=== PATIENT | female | born 1960 | race American Indian/Alaskan Native ===

== ENCOUNTER 2017-08-30 14:07 | Emergency (ER) | payer MEDICAID ==
[2017-08-30 15:23] LABS: Basophils % (Auto) 0.9 % (0.0-1.8); Eosinophils % (Auto) 2.3 % (0.0-4.3); Hemoglobin 13.3 gm/dl (10.1-14.3); Mean Corpuscular HGB Conc 34 % (30-34); Mean Corpuscular Hemoglobin 30 pg (28-32); Mean Corpuscular Volume 89 fl (79-97); Platelet Count 185 K/mm3 (140-440); Red Blood Count 4.41 M/mm3 (3.65-5.03); Red Cell Distribution Width 13.3 % (13.2-15.2); White Blood Count 5.1 K/mm3 (4.5-11.0)
[2017-08-30] MEDS ORDERED: HALDOL IM PRN (15:32)
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
[2017-08-30] MEDS ORDERED: ATIVAN ONE (15:34)
[2017-08-30] MEDS: ATIVAN IM PRN (16:06)
[2017-08-30 16:20] LABS: Anion Gap 14 mmol/L; BUN/Creatinine Ratio 21; Blood Urea Nitrogen 15 mg/dL (7-17); Calcium 9.7 mg/dL (8.4-10.2); Carbon Dioxide 29 mmol/L (22-30); Chloride 104.8 mmol/L (98-107); Glucose 101 mg/dL (65-100); Potassium 4.4 mmol/L (3.6-5.0); Sodium 143 mmol/L (137-145)
[2017-08-30] MEDS ORDERED: GEODON IM ONE (16:28)
[2017-08-30 16:55] LABS: Urine Drugs of Abuse Note Disclamer
[2017-08-30 17:03] LABS: Bacteria,Urine 1+ /HPF (Negative); Bilirubin,Urine NEG (Negative); Blood,Urine NEG (Negative); Ketones,Urine 20 mg/dL (Negative); Leukocyte Esterase,Urine SM (Negative); Mucus,Urine FEW /HPF; Nitrite,Urine POS (Negative); Protein,Urine <15 mg/dL mg/dL (Negative); Urobilinogen,Urine < 2.0 mg/dL (<2.0)
[2017-08-30] MEDS ORDERED: MULTIPLE VITAMINS PO SCH (18:45)
[2017-08-30] MEDS ORDERED: LOVASTATIN 20 MG PO SCH (18:45)
[2017-08-30] MEDS ORDERED: NON-FORMULARY (Omeprazole Magnesium [Prilosec Otc] 20 MG) PO SCH (18:45)
[2017-08-30 19:20] LABS: Carbamazepine (Tegretol) 4.5 ug/mL (4-12); Valproate 20.9 ug/mL (50-100)
[2017-08-30] MEDS: VALIUM PO SCH (21:21)
[2017-08-30] MEDS ORDERED: PRAVACHOL PO SCH (22:00)
[2017-08-30] MEDS ORDERED: NON-FORMULARY (Levetiracetam [Keppra Tab] 1,000 MG) PO SCH (22:00)
[2017-08-30] MEDS ORDERED: KEPPRA PO SCH (22:00)
[2017-08-30] MEDS ORDERED: NON-FORMULARY (Ziprasidone Hcl [Geodon] 80 MG) PO SCH (22:00)
[2017-08-31] MEDS: GEODON PO SCH ×4 (01:52→10:08)
[2017-08-31] MEDS: INDERAL PO SCH ×2 (01:52→10:08)
[2017-08-31] MEDS: MACROBID PO SCH ×2 (01:52→10:08)
[2017-08-31] MEDS: COGENTIN PO SCH ×2 (01:52→10:08)
[2017-08-31 07:38] VITALS: BP 118/78
[2017-08-31] MEDS: VALIUM PO SCH ×2 (09:04→13:41)
[2017-08-31] MEDS ORDERED: KEPPRA PO SCH (10:00)
[2017-08-31] MEDS ORDERED: THERAGRAN-M Tab PO SCH (10:00)
[2017-08-31] MEDS ORDERED: PROTONIX PO SCH (10:00)
[2017-08-31] MEDS: ATIVAN IM PRN (10:11)
--- NOTE | 2017-08-31 13:06 | Event Note ---
Date: 08/31/17 The patient has been pleasant, calm and cooperative on night. The patient is now smiling and laughing with staff members and appears to be in good spirits. She is not made any aggressive actions, and she is not homicidal or suicidal. Given her developmental delay, patient does not appear to be acutely psychotic, and she was also seen in conjunction with the crisis team last night, Gabbykrista Salgado, who also indicated the patient did not meet objective criteria for 1013 or inpatient psychiatric hospitalization. Her airport driver feels comfortable to take the patient home, medically she appears to be suitable to go home with no decompensation. Patient will be discharged at this time, I will discontinue her 1013. Vital Signs 08/30/17 08/30/17 08/31/17 14:29 19:54 07:36 Temperature 98.1 F 98.3 F 98 F Pulse Rate 67 81 86 Respiratory 18 17 20 Rate Blood Pressure 130/81 121/84 118/78 [Left] O2 Sat by Pulse 100 100 Oximetry 08/31/17 07:38 Temperature Pulse Rate Respiratory 18 Rate Blood Pressure [Left] O2 Sat by Pulse Oximetry Lab Results 08/30/17 08/30/17 08/30/17 Range/Units 15:07 15:07 15:07 WBC 5.1 (4.5-11.0) K/mm3 RBC 4.41 (3.65-5.03) M/mm3 Hgb 13.3 (10.1-14.3) gm/dl Hct 39.0 (30.3-42.9) % MCV 89 (79-97) fl MCH 30 (28-32) pg MCHC 34 (30-34) % RDW 13.3 (13.2-15.2) % Plt Count 185 (140-440) K/mm3 Lymph % (Auto) 24.0 (13.4-35.0) % [place] % (Auto) 7.4 H (0.0-7.3) % Eos % (Auto) 2.3 (0.0-4.3) % Baso % (Auto) 0.9 (0.0-1.8) % Lymph # 1.2 (1.2-5.4) K/mm3 [place] # 0.4 (0.0-0.8) K/mm3 Eos # 0.1 (0.0-0.4) K/mm3 Baso # 0.0 (0.0-0.1) K/mm3 Seg Neutrophils % 65.4 (40.0-70.0) % Seg Neutrophils # 3.4 (1.8-7.7) K/mm3 Sodium 143 (137-145) mmol/L Potassium 4.4 (3.6-5.0) mmol/L Chloride 104.8 (98-107) mmol/L Carbon Dioxide 29 (22-30) mmol/L Anion Gap 14 mmol/L BUN 15 (7-17) mg/dL Creatinine 0.7 (0.7-1.2) mg/dL Estimated GFR > 60 ml/min BUN/Creatinine Ratio 21 % Glucose 101 H (65-100) mg/dL Calcium 9.7 (8.4-10.2) mg/dL Total Creatine Kinase (30-135) units/L Urine Color (Yellow) Urine Turbidity (Clear) Urine pH (5.0-7.0) Ur Specific [place] (1.003-1.030) Urine Protein (Negative) mg/dL Urine Glucose (UA) (Negative) mg/dL Urine Ketones (Negative) mg/dL Urine Blood (Negative) Urine Nitrite (Negative) Urine Bilirubin (Negative) Urine Urobilinogen (<2.0) mg/dL Ur Leukocyte Esterase (Negative) Urine WBC (Auto) (0.0-6.0) /HPF Urine RBC (Auto) (0.0-6.0) /HPF U Epithel Cells (Auto) (0-13.0) /HPF Urine Bacteria (Auto) (Negative) /HPF Urine Mucus /HPF Salicylates (2.8-20.0) mg/dL Urine Opiates Screen Urine Methadone Screen Acetaminophen (10.0-30.0) ug/mL Ur Barbiturates Screen Valproic Acid (50-100) ug/mL Carbamazepine (4-12) ug/mL Ur Phencyclidine Scrn Ur Amphetamines Screen U Benzodiazepines Scrn Urine Cocaine Screen U Marijuana (THC) Screen Drugs of Abuse Note Plasma/Serum Alcohol < 0.01 (0-0.07) gm% 08/30/17 08/30/17 08/30/17 Range/Units 15:07 15:07 15:07 WBC (4.5-11.0) K/mm3 RBC (3.65-5.03) M/mm3 Hgb (10.1-14.3) gm/dl Hct (30.3-42.9) % MCV (79-97) fl MCH (28-32) pg MCHC (30-34) % RDW (13.2-15.2) % Plt Count (140-440) K/mm3 Lymph % (Auto) (13.4-35.0) % [place] % (Auto) (0.0-7.3) % Eos % (Auto) (0.0-4.3) % Baso % (Auto) (0.0-1.8) % Lymph # (1.2-5.4) K/mm3 [place] # (0.0-0.8) K/mm3 Eos # (0.0-0.4) K/mm3 Baso # (0.0-0.1) K/mm3 Seg Neutrophils % (40.0-70.0) % Seg Neutrophils # (1.8-7.7) K/mm3 Sodium (137-145) mmol/L Potassium (3.6-5.0) mmol/L Chloride (98-107) mmol/L Carbon Dioxide (22-30) mmol/L Anion Gap mmol/L BUN (7-17) mg/dL Creatinine (0.7-1.2) mg/dL Estimated GFR ml/min BUN/Creatinine Ratio % Glucose (65-100) mg/dL Calcium (8.4-10.2) mg/dL Total Creatine Kinase 124 (30-135) units/L Urine Color (Yellow) Urine Turbidity (Clear) Urine pH (5.0-7.0) Ur Specific [place] (1.003-1.030) Urine Protein (Negative) mg/dL Urine Glucose (UA) (Negative) mg/dL Urine Ketones (Negative) mg/dL Urine Blood (Negative) Urine Nitrite (Negative) Urine Bilirubin (Negative) Urine Urobilinogen (<2.0) mg/dL Ur Leukocyte Esterase (Negative) Urine WBC (Auto) (0.0-6.0) /HPF Urine RBC (Auto) (0.0-6.0) /HPF U Epithel Cells (Auto) (0-13.0) /HPF Urine Bacteria (Auto) (Negative) /HPF Urine Mucus /HPF Salicylates < 0.3 L (2.8-20.0) mg/dL Urine Opiates Screen Urine Methadone Screen Acetaminophen < 15.0 (10.0-30.0) ug/mL Ur Barbiturates Screen Valproic Acid (50-100) ug/mL Carbamazepine (4-12) ug/mL Ur Phencyclidine Scrn Ur Amphetamines Screen U Benzodiazepines Scrn Urine Cocaine Screen U Marijuana (THC) Screen Drugs of Abuse Note Plasma/Serum Alcohol (0-0.07) gm% 08/30/17 08/30/17 08/30/17 Range/Units 15:07 16:50 16:50 WBC (4.5-11.0) K/mm3 RBC (3.65-5.03) M/mm3 Hgb (10.1-14.3) gm/dl Hct (30.3-42.9) % MCV (79-97) fl MCH (28-32) pg MCHC (30-34) % RDW (13.2-15.2) % Plt Count (140-440) K/mm3 Lymph % (Auto) (13.4-35.0) % [place] % (Auto) (0.0-7.3) % Eos % (Auto) (0.0-4.3) % Baso % (Auto) (0.0-1.8) % Lymph # (1.2-5.4) K/mm3 [place] # (0.0-0.8) K/mm3 Eos # (0.0-0.4) K/mm3 Baso # (0.0-0.1) K/mm3 Seg Neutrophils % (40.0-70.0) % Seg Neutrophils # (1.8-7.7) K/mm3 Sodium (137-145) mmol/L Potassium (3.6-5.0) mmol/L Chloride (98-107) mmol/L Carbon Dioxide (22-30) mmol/L Anion Gap mmol/L BUN (7-17) mg/dL Creatinine (0.7-1.2) mg/dL Estimated GFR ml/min BUN/Creatinine Ratio % Glucose (65-100) mg/dL Calcium (8.4-10.2) mg/dL Total Creatine Kinase (30-135) units/L Urine Color Yellow (Yellow) Urine Turbidity Slightly-cloudy (Clear) Urine pH 6.0 (5.0-7.0) Ur Specific [place] 1.023 (1.003-1.030) Urine Protein <15 mg/dl (Negative) mg/dL Urine Glucose (UA) Neg (Negative) mg/dL Urine Ketones 20 (Negative) mg/dL Urine Blood Neg (Negative) Urine Nitrite Pos (Negative) Urine Bilirubin Neg (Negative) Urine Urobilinogen < 2.0 (<2.0) mg/dL Ur Leukocyte Esterase Sm (Negative) Urine WBC (Auto) 7.0 H (0.0-6.0) /HPF Urine RBC (Auto) 1.0 (0.0-6.0) /HPF U Epithel Cells (Auto) < 1.0 (0-13.0) /HPF Urine Bacteria (Auto) 1+ (Negative) /HPF Urine Mucus Few /HPF Salicylates (2.8-20.0) mg/dL Urine Opiates Screen Presumptive negative Urine Methadone Screen Presumptive negative Acetaminophen (10.0-30.0) ug/mL Ur Barbiturates Screen Presumptive negative Valproic Acid 20.9 L (50-100) ug/mL Carbamazepine 4.5 (4-12) ug/mL Ur Phencyclidine Scrn Presumptive negative Ur Amphetamines Screen Presumptive negative U Benzodiazepines Scrn Presumptive positive Urine Cocaine Screen Presumptive negative U Marijuana (THC) Screen Presumptive negative Drugs of Abuse Note Disclamer Plasma/Serum Alcohol (0-0.07) gm%
== END 2017-08-31 14:38 | disposition home or self-care (01) ==
LOC: EEVIPCON 14:07 → ED 14:07
DX: F91.8 Other conduct disorders (principal)
CPT/HCPCS: 36415; 80048; 80156; 80164; 80307; 81001; 82550; 85025; 96372; 99284; A9270; G0480; J1630; J2060; J3486; 80320

== ENCOUNTER 2017-09-07 10:20 | Emergency (ER) | payer MEDICAID ==
[2017-09-07] MEDS ORDERED: GEODON IM ONE ×2 (10:42→11:30)
--- NOTE | 2017-09-07 10:51 | Emergency Department Report ---
ED Psych HPI - General Chief Complaint: Altered Mental Status Stated Complaint: 1013/SCHIZO/DEMENTED/BIPOLAR Time Seen by Provider: 09/07/17 10:44 Source: police, RN notes reviewed, old records reviewed Mode of arrival: Ambulatory - History of Present Illness Initial Comments: Patient is 57 years old female history of schizophrenia and bipolar disorder, presented to the ER via PD after her personal home called, stating that the patient was very combative and destroying items. Patient also saying that she want to kill herself and kill everyone. Patient is very combative when she came to the ER tear stuff apart and stating that she does not want to talk to anyone. MD Complaint: suicidal ideation, altered mental status -: Gradual Associated Psychiatric Symptoms: racing thoughts, auditory hallucinations, visual hallucinations History of same: Yes Quality: constant Treatments Prior to Arrival: placed on mental he - Related Data Home Medications Medication Instructions Recorded Confirmed Last Taken Benztropine [Cogentin] 1 mg PO BID 08/30/17 08/30/17 Unknown Diazepam Tab [Valium] 2 mg PO TID 08/30/17 08/30/[address] [DepaKOTE DR] 500 mg PO BID 08/30/17 08/30/17 Unknown Lovastatin Tab [Mevacor Tab] 20 mg PO DAILY 08/30/17 08/30/17 Unknown Multiple Vitamins 20 mg PO DAILY 08/30/17 08/30/17 Unknown Omeprazole Magnesium [PriLOSEC Otc] 20 mg PO QDAY 08/30/17 08/30/17 Unknown Propranolol [Inderal] 10 mg PO BID 08/30/17 08/30/17 Unknown Ziprasidone HCl [Geodon] 80 mg PO BID MDD 100mg in am 08/30/17 08/30/17 Unknown Ziprasidone [Geodon] 20 mg PO BID MDD 100mg at hs 08/30/17 08/30/17 Unknown carBAMazepine [TEGretol] 200 mg PO Q12HR 08/30/17 08/30/17 Unknown levETIRAcetam [Keppra TAB] 1,000 mg PO QHS 08/30/17 08/30/17 Unknown levETIRAcetam [Keppra TAB] 1,500 mg PO QAM 08/30/17 08/30/17 Unknown Previous Rx's Medication Instructions Recorded Last Taken Type Nitrofurantoin Edgar/M-Cryst 100 mg PO Q12HR #13 capsule 08/31/17 Unknown Rx [Macrobid CAP] Allergies Allergy/AdvReac Type Severity Reaction Status Date / Time Unable to Assess Allergy Unverified 08/30/17 14:14 ED Review of Systems ROS: Stated complaint: 1013/SCHIZO/DEMENTED/BIPOLAR Other details as noted in HPI Comment: All other systems reviewed and negative Constitutional: denies: chills, fever ENT: denies: throat pain Respiratory: denies: cough, orthopnea, shortness of breath, SOB with exertion Cardiovascular: denies: chest pain, palpitations Gastrointestinal: denies: abdominal pain, nausea, vomiting, diarrhea, constipation, hematemesis Psychiatric: auditory hallucinations, visual hallucinations, suicidal thoughts ED Past Medical Hx - Past Medical History Additional medical history: unobtainable - Surgical History Additional Surgical History: unobtainable - Social History Smoking Status: Never Smoker Substance Use Type: None - Medications Home Medications: Home Medications Medication Instructions Recorded Confirmed Last Taken Type Benztropine [Cogentin] 1 mg PO BID 08/30/17 08/30/17 Unknown History Diazepam Tab [Valium] 2 mg PO TID 08/30/17 08/30/[address] [DepaKOTE DR] 500 mg PO BID 08/30/17 08/30/17 Unknown History Lovastatin Tab [Mevacor Tab] 20 mg PO DAILY 08/30/17 08/30/17 Unknown History Multiple Vitamins 20 mg PO DAILY 08/30/17 08/30/17 Unknown History Omeprazole Magnesium [PriLOSEC Otc] 20 mg PO QDAY 08/30/17 08/30/17 Unknown History Propranolol [Inderal] 10 mg PO BID 08/30/17 08/30/17 Unknown History Ziprasidone HCl [Geodon] 80 mg PO BID MDD 100mg in am 08/30/17 08/30/17 Unknown History Ziprasidone [Geodon] 20 mg PO BID MDD 100mg at hs 08/30/17 08/30/17 Unknown History carBAMazepine [TEGretol] 200 mg PO Q12HR 08/30/17 08/30/17 Unknown History levETIRAcetam [Keppra TAB] 1,000 mg PO QHS 08/30/17 08/30/17 Unknown History levETIRAcetam [Keppra TAB] 1,500 mg PO QAM 08/30/17 08/30/17 Unknown History Nitrofurantoin Edgar/M-Cryst 100 mg PO Q12HR #13 capsule 08/31/17 Unknown Rx [Macrobid CAP] ED Physical Exam - General Limitations: Altered Mental Status General appearance: alert, anxious - Head Head exam: Present: atraumatic, normocephalic, normal inspection - Eye Eye exam: Present: normal appearance - ENT ENT exam: Present: normal exam - Neck Neck exam: Present: normal inspection, full ROM. Absent: tenderness, meningismus, lymphadenopathy - Respiratory Respiratory exam: Present: normal lung sounds bilaterally. Absent: respiratory distress, wheezes, rales, rhonchi, chest wall tenderness, decreased breath sounds, prolonged expiratory - Cardiovascular Cardiovascular Exam: Present: regular rate, normal rhythm, normal heart sounds - GI/Abdominal GI/Abdominal exam: Present: soft, normal bowel sounds. Absent: distended, tenderness, guarding, rebound, rigid, organomegaly, mass, bruit, pulsatile mass , hernia - Extremities Exam Extremities exam: Present: normal inspection, full ROM, normal capillary refill - Back Exam Back exam: Present: normal inspection, full ROM. Absent: tenderness, CVA tenderness (R), CVA tenderness (L) - Neurological Exam Neurological exam: Present: alert, oriented X3, CN II-XII intact, normal gait, reflexes normal. Absent: motor sensory deficit - Psychiatric Psychiatric exam: Present: agitated, anxious, manic, suicidal ideation - Skin Skin exam: Present: warm, intact, normal color ED Course Vital Signs 09/07/17 10:32 Temperature 98.6 F Pulse Rate 93 H Respiratory 18 Rate Blood Pressure 122/71 O2 Sat by Pulse 99 Oximetry ED Medical Decision Making - Lab Data Result diagrams: 09/07/17 10:50 09/07/17 10:50 Critical care attestation.: If time is entered above; I have spent that time in minutes in the direct care of this critically ill patient, excluding procedure time. ED Disposition Clinical Impression: Acute psychosis, Suicidal ideation Disposition: DC/TX-65 PSY HOSP/PSY UNIT Is pt being admited?: No Condition: Stable
[2017-09-07 11:13] LABS: Basophils # (Auto) 0.1 K/mm3 (0.0-0.1); Basophils % (Auto) 1.3 % (0.0-1.8); Eosinophils # (Auto) 0.1 K/mm3 (0.0-0.4); Hematocrit 39.9 % (30.3-42.9); Hemoglobin 13.4 gm/dl (10.1-14.3); Lymphocytes # (Auto) 1.1 K/mm3 (1.2-5.4); Lymphocytes % (Auto) 21.9 % (13.4-35.0); Mean Corpuscular HGB Conc 34 % (30-34); Mean Corpuscular Hemoglobin 30 pg (28-32); Mean Corpuscular Volume 88 fl (79-97); Monocytes # (Auto) 0.3 K/mm3 (0.0-0.8); Monocytes % (Auto) 6.5 % (0.0-7.3); Platelet Count 216 K/mm3 (140-440); Red Blood Count 4.55 M/mm3 (3.65-5.03); Red Cell Distribution Width 13.1 % (13.2-15.2)
[2017-09-07 11:27] LABS: Alanine Aminotransferase 18 units/L (7-56); Albumin 4.2 g/dL (3.9-5); BUN/Creatinine Ratio 23; Blood Urea Nitrogen 18 mg/dL (7-17); Calcium 9.4 mg/dL (8.4-10.2); Hemolysis Index 13
[2017-09-07 11:55] LABS: Bilirubin,Urine NEG (Negative); Blood,Urine NEG (Negative); Color,Urine Yellow (Yellow); Mucus,Urine FEW /HPF; Nitrite,Urine NEG (Negative)
[2017-09-07 12:18] LABS: Amphetamine Screen,Urine PRESUMPTIVE NEGATIVE; Cannabinoid Screen,Urine PRESUMPTIVE NEGATIVE; Cocaine Screen,Urine PRESUMPTIVE NEGATIVE; Methadone Screen,Urine PRESUMPTIVE NEGATIVE; Opiate Screen,Urine PRESUMPTIVE NEGATIVE
[2017-09-07 12:31] LABS: Benzodiazepines Screen,Urine PRESUMPTIVE POSITIVE
--- NOTE | 2017-09-09 11:31 | Consultation ---
History of Present Illness - Reason for Consult Consult date: 09/09/17 Reason for consult: Mental Health Evaluation Requesting physician: SUMMER SNOWDEN - Chief Complaint Chief complaint: "Patient will not talk during the interview" - History of Present Psychiatric Illness 57 y.o. AA female presenting to [facility] per her personal retirement for combative/ aggressive behavior and SI's. Today patient is nonverbal during the assessment with a gazed stare. She refused to answer any questions asked of her. No gestures of SI/HI's. Medications and Allergies Allergies Allergy/AdvReac Type Severity Reaction Status Date / Time Unable to Assess Allergy Unverified 08/30/17 14:14 Home Medications Medication Instructions Recorded Confirmed Last Taken Type Benztropine [Cogentin] 1 mg PO BID 08/30/17 09/08/17 Unknown History Diazepam Tab [Valium] 2 mg PO TID 08/30/17 09/08/[address] [DepaKOTE DR] 500 mg PO BID 08/30/17 09/08/17 Unknown History Lovastatin Tab [Mevacor Tab] 20 mg PO DAILY 08/30/17 09/08/17 Unknown History Multiple Vitamins 20 mg PO DAILY 08/30/17 09/08/17 Unknown History Omeprazole Magnesium [PriLOSEC Otc] 20 mg PO QDAY 08/30/17 09/08/17 Unknown History Propranolol [Inderal] 10 mg PO BID 08/30/17 09/08/17 Unknown History Ziprasidone HCl [Geodon] 80 mg PO BID MDD 100mg in am 08/30/17 09/08/17 Unknown History Ziprasidone [Geodon] 20 mg PO BID MDD 100mg at hs 08/30/17 09/08/17 Unknown History carBAMazepine [TEGretol] 200 mg PO Q12HR 08/30/17 09/08/17 Unknown History levETIRAcetam [Keppra TAB] 1,000 mg PO QHS 08/30/17 09/08/17 Unknown History levETIRAcetam [Keppra TAB] 1,500 mg PO QAM 08/30/17 09/08/17 Unknown History Nitrofurantoin [place]/M-Cryst 100 mg PO Q12HR #13 capsule 08/31/17 09/08/17 Unknown Rx [Macrobid CAP] Past psychiatric history - Past Medical History Past Medical History: other (Unable to obtain) Past Surgical History: Other (Unable to obtain) - past Psychiatric treatment and history psychiatric treatment history: Unable to obtain a psy hx and a fam psy hx. - Social History Social history: other (Per the record - Patient resides at a personal retirement) Mental Status Exam - Vital signs Last Vital Signs Temp 97.8 F 09/09/17 06:05 Pulse 67 09/09/17 06:05 Resp 18 09/09/17 08:27 BP 136/77 09/09/17 06:05 Pulse Ox 96 09/09/17 06:05 - Exam Narrative exam: Unable to complete MSE because of patient's condition. Results Result Diagrams: 09/07/17 10:50 09/07/17 10:50 All other labs normal. Assessment and Plan Assessment and plan: Impression: Per the record - The patient has a hx of Bipolar DO/Schizophrenia. Today patient is nonverbal during the assessment. She refused to talk during the assessment. Recommendation/Plan: Continue 1013 and gather collateral to determine proper treatment and dispo. VA and CK ordered.
--- NOTE | 2017-09-10 10:07 | Progress Note ---
Subjective - Reason for Consult Consult date: 09/10/17 Reason for consult: Psychiatry Follow-up - Chief Complaint Chief complaint: "Hello" 57 y.o. AA female presenting to [facility] per her personal usp for combative/ aggressive behavior and SI's. Today patient is calm during the assessment. She stated she felt "okay" when she was asked about her mood. She would not answer other questions when asked. Per the staff, no behavioral disturbances since her admission. No gestures of SI/HI's. Mental Status Exam - Vital signs Last Vital Signs Temp 97.6 F 09/09/17 15:44 Pulse 75 09/09/17 15:44 Resp 19 09/10/17 04:44 BP 142/90 09/09/17 15:44 Pulse Ox 99 09/10/17 04:44 - Exam Narrative exam: MSE: Appearance: calm Behavior: good eye contact Speech: regular rate and tone Mood: "okay" Affect: congruent to mood Thought Process: unable to assess Thought Content: no gestures of SI/HI's and AVH's Motor Activity: ambulatory Cognition: unable to assess Insight: unable to assess Judgment: unable to assess Assessment and Plan Impression: Per the record - The patient has a hx of Bipolar DO/Schizophrenia. Today patient is calm during the assessment. Recommendation/Plan: Rescind 1013. Patient can return to her skilled nursing per her rabbet operator Ingrid Munguia. Patient will follow up with her psychiatrist ( outpatient) once discharged per her rabbet operator. Patient does not need any prescriptions.
[2017-09-10] MEDS ORDERED: ATIVAN ONE (22:40)
[2017-09-10] MEDS ORDERED: GEODON IM ONE (22:41)
[2017-09-10] MEDS ORDERED: HALDOL ONE (22:57)
[2017-09-10] MEDS ORDERED: ATIVAN IM ONE (23:00)
--- NOTE | 2017-09-10 23:01 | Event Note ---
Date: 09/10/17 Patient had 1013 rescinded and about 20 minutes ago started acting hysterical and had to be placed in a padded room. She was banging her head against the glass so I ordered a CT and we gave her Haldol 5 mg, Geodon 20mg and ativan. We will reinstate the 1013.
[2017-09-10] MEDS ORDERED: HALDOL IM ONE (23:59)
[2017-09-11] MEDS ORDERED: GEODON IM ONE (00:01)
[2017-09-11] MEDS ORDERED: HALDOL IM ONE (01:06)
[2017-09-11] MEDS ORDERED: BENADRYL IM ONE (01:06)
--- NOTE | 2017-09-11 02:56 | Cat Scan Report ---
FINAL REPORT EXAM: CT HEAD/BRAIN WO CON HISTORY: Trauma to head self inflicted. COMPARISON: None available. TECHNIQUE: Axial images obtained skull base through vertex. FINDINGS: No acute intracranial hemorrhage, midline shift or pathologic extra axial fluid collection. Ventricles and cisterns are normal in size and configuration for the patient's age. Ruth-white differentiation preserved. Calvarium grossly intact. Soft tissue swelling along the left parietal calvarium. Prior cataract surgery. Mild mucosal thickening of the ethmoid air cells. Mastoid air cells are clear. IMPRESSION: No grossly acute intracranial abnormality. Soft tissue swelling along the left parietal calvarium. No calvarial fracture.
--- NOTE | 2017-09-12 09:57 | Progress Note ---
Subjective - Reason for Consult Consult date: 09/12/17 Reason for consult: Psychiatry Follow-up - Chief Complaint Chief complaint: "Hi" 57 y.o. AA female presenting to [facility] per her personal alf for combative/ aggressive behavior and SI's. Today patient is calm during the assessment. Per the record the patient's 1013 was reinstated (09/11/2017) for aggressive and destructive behavior. She would not answer any questions asked of her during the interview. No gestures of SI/HI's. Per collateral from Mahn[employer] (outbound sales advisor) the patient takes 1500 mg QAM/2000 mg QHS for seizure, Tegretol 200 mg PO BID for mood, and Depakote DR 500 mg PO BID for mood. Mental Status Exam - Vital signs Last Vital Signs Temp 97.9 F 09/11/17 22:00 Pulse 75 09/11/17 22:00 Resp 20 09/11/17 22:00 BP 137/92 09/11/17 22:00 Pulse Ox 99 09/11/17 22:00 - Exam Narrative exam: MSE: Appearance: calm Behavior: good eye contact Speech: regular rate and loud tone Mood: "okay" Affect: congruent to mood Thought Process: unable to assess Thought Content: no gestures of SI/HI's and AVH's Motor Activity: ambulatory Cognition: unable to assess Insight: unable to assess Judgment: unable to assess Assessment and Plan Impression: Per the record - The patient has a hx of Bipolar DO/Schizophrenia. Today patient is calm during the assessment. Recommendation/Plan: Continue 1013 with placement to inpatient psy services. Start Depakote DR 500 mg PO BID for mood, Tegretol 200 mg PO BID for mood. Informed the ER physician of patient's hx of seizure and Keppra dosages.
[2017-09-12] MEDS: KEPPRA PO SCH (22:25)
--- NOTE | 2017-09-13 08:34 | Progress Note ---
Subjective - Reason for Consult Consult date: 09/13/17 Reason for consult: Psychiatry Follow-up - Chief Complaint Chief complaint: "Hello" 57 y.o. AA female presenting to [facility] per her personal correction for combative/ aggressive behavior and SI's. Today patient is calm and cooperative during the assessment. The patient is more oriented today than previous interviews. She was able to tell me her location and name. She denies SI/HI's and AVH's. Per the staff, no behavioral disturbance overnight. No indications of side effects of her medications. Mental Status Exam - Vital signs Last Vital Signs Temp 98.0 F 09/12/17 22:00 Pulse 76 09/12/17 22:00 Resp 18 09/12/17 22:00 BP 145/85 09/12/17 22:00 Pulse Ox 98 09/12/17 22:00 - Exam Narrative exam: MSE: Appearance: calm, cooperative Behavior: good eye contact Speech: regular rate and loud tone Mood: "okay" Affect: congruent to mood Thought Process: circumstantial Thought Content: denies SI/HI's and AVH's Motor Activity: ambulatory Cognition: A/O x3 Insight: limited Judgment: limited Assessment and Plan Impression: Per the record - The patient has a hx of Bipolar DO/Schizophrenia. Today patient is calm and cooperative during the assessment. Recommendation/Plan: Continue 1013 with placement to inpatient psy services. Continue Depakote DR 500 mg PO BID for mood and Tegretol 200 mg PO BID for mood.
[2017-09-13] MEDS: KEPPRA PO SCH (10:45)
[2017-09-13 20:12] VITALS: BP 133/72
--- NOTE | 2017-09-13 21:27 | Emergency Department Report ---
HPI - General Chief Complaint: Altered Mental Status Time Seen by Provider: 09/07/17 10:44 - HPI HPI: Progress note: Patient is a 57-year-old female who is in a retirement. Patient is seen by psych evaluation staff and determined that she is not meeting criteria for placement in a psych facility. Patient has purely behavioral issues. There is a support plan in place for this patient already at her retirement ED Past Medical Hx - Past Medical History Previous Medical History?: Yes Additional medical history: unobtainable - Surgical History Additional Surgical History: unobtainable - Social History Smoking Status: Never Smoker Substance Use Type: None - Medications Home Medications: Home Medications Medication Instructions Recorded Confirmed Last Taken Type Benztropine [Cogentin] 1 mg PO BID 08/30/17 09/08/17 Unknown History Diazepam Tab [Valium] 2 mg PO TID 08/30/17 09/08/[address] [DepaKOTE DR] 500 mg PO BID 08/30/17 09/08/17 Unknown History Lovastatin Tab [Mevacor Tab] 20 mg PO DAILY 08/30/17 09/08/17 Unknown History Multiple Vitamins 20 mg PO DAILY 08/30/17 09/08/17 Unknown History Omeprazole Magnesium [PriLOSEC Otc] 20 mg PO QDAY 08/30/17 09/08/17 Unknown History Propranolol [Inderal] 10 mg PO BID 08/30/17 09/08/17 Unknown History Ziprasidone HCl [Geodon] 80 mg PO BID MDD 100mg in am 08/30/17 09/08/17 Unknown History Ziprasidone [Geodon] 20 mg PO BID MDD 100mg at hs 08/30/17 09/08/17 Unknown History carBAMazepine [TEGretol] 200 mg PO Q12HR 08/30/17 09/08/17 Unknown History levETIRAcetam [Keppra TAB] 1,000 mg PO QHS 08/30/17 09/08/17 Unknown History levETIRAcetam [Keppra TAB] 1,500 mg PO QAM 08/30/17 09/08/17 Unknown History Nitrofurantoin [place]/M-Cryst 100 mg PO Q12HR #13 capsule 08/31/17 09/08/17 Unknown Rx [Macrobid CAP] ED Review of Systems ROS: Stated complaint: 1013/SCHIZO/DEMENTED/BIPOLAR Other details as noted in HPI Constitutional: denies: chills, fever ENT: denies: throat pain Respiratory: denies: cough, orthopnea, shortness of breath, SOB with exertion Cardiovascular: denies: chest pain, palpitations Gastrointestinal: denies: abdominal pain, nausea, vomiting, diarrhea, constipation, hematemesis Psychiatric: auditory hallucinations, visual hallucinations, suicidal thoughts Physical Exam - Physical Exam Vital Signs: Vital Signs 09/07/17 09/07/17 09/08/17 10:32 20:27 09:15 Temperature 98.6 F Pulse Rate 93 H 64 Respiratory 18 16 17 Rate Blood Pressure 122/71 Blood Pressure 110/76 [Left] O2 Sat by Pulse 99 97 Oximetry 09/08/17 09/09/17 09/09/17 18:42 06:05 08:27 Temperature 97.8 F Pulse Rate 86 67 Respiratory 18 16 18 Rate Blood Pressure Blood Pressure 136/77 [Left] O2 Sat by Pulse 96 Oximetry 09/09/17 09/10/17 09/10/17 15:44 04:44 23:01 Temperature 97.6 F Pulse Rate 75 88 Respiratory 19 19 18 Rate Blood Pressure Blood Pressure 142/90 143/92 [Left] O2 Sat by Pulse 99 99 100 Oximetry 09/11/17 09/11/17 09/12/17 12:33 22:00 14:00 Temperature 98.7 F 97.9 F Pulse Rate 77 75 Respiratory 20 20 20 Rate Blood Pressure Blood Pressure 123/88 137/92 [Left] O2 Sat by Pulse 100 99 99 Oximetry 09/12/17 09/13/17 09/13/17 22:00 10:41 12:40 Temperature 98.0 F 98.3 F Pulse Rate 76 87 Respiratory 18 20 18 Rate Blood Pressure Blood Pressure 145/85 110/80 [Left] O2 Sat by Pulse 98 98 Oximetry 09/13/17 20:11 Temperature 98.7 F Pulse Rate 74 Respiratory 17 Rate Blood Pressure Blood Pressure 133/72 [Left] O2 Sat by Pulse 97 Oximetry General: Patient stable in no acute distress at this time please see the original H&P for full physical exam ED Course Vital Signs 09/07/17 09/07/17 09/08/17 10:32 20:27 09:15 Temperature 98.6 F Pulse Rate 93 H 64 Respiratory 18 16 17 Rate Blood Pressure 122/71 Blood Pressure 110/76 [Left] O2 Sat by Pulse 99 97 Oximetry 09/08/17 09/09/17 09/09/17 18:42 06:05 08:27 Temperature 97.8 F Pulse Rate 86 67 Respiratory 18 16 18 Rate Blood Pressure Blood Pressure 136/77 [Left] O2 Sat by Pulse 96 Oximetry 09/09/17 09/10/17 09/10/17 15:44 04:44 23:01 Temperature 97.6 F Pulse Rate 75 88 Respiratory 19 19 18 Rate Blood Pressure Blood Pressure 142/90 143/92 [Left] O2 Sat by Pulse 99 99 100 Oximetry 09/11/17 09/11/17 09/12/17 12:33 22:00 14:00 Temperature 98.7 F 97.9 F Pulse Rate 77 75 Respiratory 20 20 20 Rate Blood Pressure Blood Pressure 123/88 137/92 [Left] O2 Sat by Pulse 100 99 99 Oximetry 09/12/17 09/13/17 09/13/17 22:00 10:41 12:40 Temperature 98.0 F 98.3 F Pulse Rate 76 87 Respiratory 18 20 18 Rate Blood Pressure Blood Pressure 145/85 110/80 [Left] O2 Sat by Pulse 98 98 Oximetry 09/13/17 20:11 Temperature 98.7 F Pulse Rate 74 Respiratory 17 Rate Blood Pressure Blood Pressure 133/72 [Left] O2 Sat by Pulse 97 Oximetry ED Medical Decision Making - Lab Data Result diagrams: 09/07/17 10:50 09/07/17 10:50 - Medical Decision Making The patient is a 1013 was rescinded at this time at 9:24 PM 09/13/[address] Rivera Critical care attestation.: If time is entered above; I have spent that time in minutes in the direct care of this critically ill patient, excluding procedure time. ED Disposition Clinical Impression: Behavioral disorder Disposition: DC-01 TO HOME OR SELFCARE Is pt being admited?: No Does the pt Need Aspirin: No Condition: Fair Referrals: PRIMARY CARE, [Primary Care Provider] - 3-5 Days
== END 2017-09-13 23:00 | disposition home or self-care (01) ==
LOC: ED 10:20 → EEVIPCON 10:20 → ED 09-13 23:00
DX: F23 Brief psychotic disorder (principal); R45.851 Suicidal ideations
CPT/HCPCS: 36415; 70450; 80053; 80156; 80164; 80307; 81001; 82550; 84075; 85025; 96372; 99285; G0480; J1200; J1630; J2060; J3486; 80320

== ENCOUNTER 2017-10-08 19:32 | Emergency (ER) | payer MEDICAID ==
[2017-10-08 19:46] VITALS: BP 122/74
[2017-10-08] MEDS ORDERED: GEODON IM ONE (20:38)
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
[2017-10-08 20:46] LABS: BUN/Creatinine Ratio 20; Blood Urea Nitrogen 14 mg/dL (7-17); Calcium 9.1 mg/dL (8.4-10.2); Hemolysis Index 73
[2017-10-08 21:06] LABS: Basophils # (Auto) 0.1 K/mm3 (0.0-0.1); Basophils % (Auto) 0.8 % (0.0-1.8); Eosinophils # (Auto) 0.1 K/mm3 (0.0-0.4); Eosinophils % (Auto) 1.4 % (0.0-4.3); Hematocrit 40.9 % (30.3-42.9); Hemoglobin 13.8 gm/dl (10.1-14.3); Lymphocytes # (Auto) 1.3 K/mm3 (1.2-5.4); Lymphocytes % (Auto) 15.8 % (13.4-35.0); Mean Corpuscular HGB Conc 34 % (30-34); Mean Corpuscular Hemoglobin 30 pg (28-32); Mean Corpuscular Volume 88 fl (79-97); Monocytes # (Auto) 0.6 K/mm3 (0.0-0.8); Monocytes % (Auto) 7.4 % (0.0-7.3); Platelet Count 203 K/mm3 (140-440); Red Blood Count 4.65 M/mm3 (3.65-5.03); Red Cell Distribution Width 12.9 % (13.2-15.2)
[2017-10-08 21:29] LABS: Amphetamine Screen,Urine PRESUMPTIVE NEGATIVE; Cannabinoid Screen,Urine PRESUMPTIVE NEGATIVE; Cocaine Screen,Urine PRESUMPTIVE NEGATIVE; Methadone Screen,Urine PRESUMPTIVE NEGATIVE; Opiate Screen,Urine PRESUMPTIVE NEGATIVE
[2017-10-08 21:41] LABS: Bacteria,Urine 2+ /HPF (Negative); Bilirubin,Urine NEG (Negative); Blood,Urine NEG (Negative); Color,Urine Yellow (Yellow); Hyaline Casts,Urine 1 /LPF; Mucus,Urine 2+ /HPF; Nitrite,Urine NEG (Negative)
[2017-10-08 21:42] LABS: Benzodiazepines Screen,Urine PRESUMPTIVE POSITIVE
[2017-10-09] MEDS ORDERED: GEODON IM ONE ×2 (08:53→08:57)
== END 2017-10-09 10:39 | disposition home or self-care (01) ==
LOC: EEVIPCON 19:32 → ED 19:32
DX: F23 Brief psychotic disorder (principal); F17.200 Nicotine dependence, unspecified, uncomplicated
CPT/HCPCS: 36415; 80048; 80307; 81001; 85025; 96372; 99283; G0480; J3486; 80320

== ENCOUNTER 2017-12-16 10:48 | Outpatient (CLI) | payer MEDICAID ==
--- NOTE | 2017-12-17 14:20 | Mammography Report ---
BILATERAL DIGITAL SCREENING MAMMOGRAM WITH CAD:12/16/17 00:00:00 CLINICAL: Baseline screening. FINDINGS: The breasts are heterogeneously dense, which may obscure small masses.A few bilateral benign calcifications.No mass, architectural distortion or suspicious calcifications. IMPRESSION: No mammographic evidence of malignancy. BI-RADS CATEGORY: 2 - - Benign RECOMMENDATION: Routine mammographic screening in one year. ACR BI-RADS MAMMOGRAPHIC CODES: 0 = Needs additional imaging evaluation; 1 = Negative; 2 = Benign; 3 = Probably benign; 4 = Suspicious; 5 = Malignant; 6 = Known biopsy-proven malignancy COMMENT: 1. Dense breast tissue, i.e., adenosis, fibrocystic changes, etc., may obscure an underlying neoplasm. 2. Approximately 10% of cancers are not detected with mammography. 3. A negative mammography report should not delay biopsy if a clinically suspicious mass is present.
== END 2017-12-16 10:49 | disposition home or self-care (01) ==
LOC: SPVWC 10:48
DX: Z12.31 Encounter for screening mammogram for malignant neoplasm of breast (principal)
CPT/HCPCS: 77067

== ENCOUNTER 2018-02-11 14:01 | Emergency (ER) | payer MEDICAID ==
[2018-02-11] MEDS ORDERED: HALDOL IM PRN (14:20)
[2018-02-11] MEDS ORDERED: ATIVAN IM PRN (14:20)
[2018-02-11] MEDS ORDERED: BENADRYL IM PRN (14:20)
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
[2018-02-11 15:07] LABS: Basophils # (Auto) 0.1 K/mm3 (0.0-0.1); Basophils % (Auto) 0.8 % (0.0-1.8); Eosinophils # (Auto) 0.2 K/mm3 (0.0-0.4); Eosinophils % (Auto) 2.8 % (0.0-4.3); Hematocrit 42.1 % (30.3-42.9); Hemoglobin 14.6 gm/dl (10.1-14.3); Lymphocytes # (Auto) 1.4 K/mm3 (1.2-5.4); Mean Corpuscular HGB Conc 35 % (30-34); Mean Corpuscular Hemoglobin 30 pg (28-32); Mean Corpuscular Volume 87 fl (79-97); Monocytes # (Auto) 0.6 K/mm3 (0.0-0.8); Monocytes % (Auto) 6.4 % (0.0-7.3); Platelet Count 245 K/mm3 (140-440); Red Blood Count 4.82 M/mm3 (3.65-5.03); Red Cell Distribution Width 13.2 % (13.2-15.2)
[2018-02-11 15:18] LABS: BUN/Creatinine Ratio 23; Blood Urea Nitrogen 18 mg/dL (7-17); Calcium 9.7 mg/dL (8.4-10.2); Hemolysis Index 13
[2018-02-11 17:29] LABS: Bacteria,Urine 4+ /HPF (Negative); Bilirubin,Urine NEG (Negative); Blood,Urine NEG (Negative); Color,Urine Amber (Yellow); Mucus,Urine 2+ /HPF
[2018-02-11 17:34] LABS: Amphetamine Screen,Urine PRESUMPTIVE NEGATIVE; Cannabinoid Screen,Urine PRESUMPTIVE NEGATIVE; Cocaine Screen,Urine PRESUMPTIVE NEGATIVE; Methadone Screen,Urine PRESUMPTIVE NEGATIVE; Opiate Screen,Urine PRESUMPTIVE NEGATIVE
[2018-02-11 17:47] LABS: Benzodiazepines Screen,Urine PRESUMPTIVE POSITIVE
[2018-02-12 09:27] VITALS: BP 156/103
== END 2018-02-12 16:32 ==
LOC: ED 14:01
DX: F20.9 Schizophrenia, unspecified (principal)
CPT/HCPCS: 36415; 80048; 80307; 81001; 85025; 96372; 99285; G0480; J1200; J1630; J2060; 80320